=== PATIENT | female | born 1970 | race Caucasian/White ===

== ENCOUNTER 2021-02-20 23:23 | Inpatient (IN) | payer MEDICARE, SELFPAY ==
--- NOTE | ~2021-02-20 | XR_ITS ---
EXAMINATION: XR CHEST CLINICAL INFORMATION: Shortness of breath COMPARISON: 03/06/2018 TECHNIQUE: Frontal view of the chest was obtained. FINDINGS: Lung volumes are symmetric. Minimal streaky left basilar opacity favors atelectasis. No additional consolidation bilaterally. No evidence of pneumothorax, pleural effusion, or pulmonary edema. The cardiomediastinal contour is unremarkable. No acute osseous findings are seen. XR/XR chest 1V IMPRESSION: Linear left basilar atelectasis without additional acute findings.
--- NOTE | ~2021-02-20 | CT_ITS ---
EXAMINATION: CT ANGIOGRAM NECK AND BRAIN CLINICAL INFORMATION: Left-sided weakness COMPARISON: Head CT 02/21/2021 TECHNIQUE: Test bolus sequences followed by intravenous administration 70 mL of Omnipaque 350. Helical imaging was performed in the axial plane from the thoracic inlet to the skull vertex. Delayed postcontrast imaging of the head was also performed. The data was processed at the nuclear medical technologist's workstation for generation of MIP sequences. Angled MIPs and volume rendered reformatted images were also generated at an offline 3D workstation. Stenoses are assessed in accordance with NASCET criteria unless otherwise indicated. DOSE LOWERING TECHNIQUES: This CT examination was performed using dose optimization techniques as appropriate, variously including the following: - Automated exposure control - Adjustment of mA and/or kV according to patient size (this includes techniques or standardized protocols for targeted exams were dose is matched to indication/reason for exam; i.e. extremities or head) - Use of iterative reconstruction technique DLP: 1569 mGy-cm FINDINGS: Neck CTA: Normal appearance of the visualized aortic arch and proximal branches. No evidence of stenosis at the branch origins. The left vertebral artery arises directly off the aortic arch, an anatomic variant. Both vertebral arteries are widely patent throughout their extracranial cervical course. Normal appearance of the common and internal carotid arteries without focal stenosis. Brain CTA: Normal appearance of the intradural vertebral arteries, and left vertebral artery is dominant. The basilar and superior cerebellar arteries are patent. There is origin of the right posterior cerebral artery. Otherwise normal appearance of the bilateral posterior cerebral arteries. Normal appearance of the intradural internal carotid arteries without focal stenosis. Normal appearance of the anterior cerebral and middle cerebral arteries without focal occlusion or stenosis. Normal anterior communicating artery. Normal arborization of the middle cerebral arteries. CT Head: No intracranial mass, hemorrhage, extra-axial collection, or midline shift. The barreto-white matter differentiation is preserved. No pathologic intra-axial enhancement or regional oligemia. No hydrocephalus. The mastoid air cells and paranasal sinuses remain well aerated. CT Neck: The thyroid gland and remaining cervical soft tissues are normal in appearance. Patient is status post C5-C6 ACDF. Mild scattered degenerative changes of the cervical spine. Upper Chest: No abnormalities in the visualized lung apices or upper mediastinum. CT/CT angio head neck IMPRESSION: No hemodynamically significant stenosis in the major arteries of the neck. No large vessel occlusion or significant stenosis in the intracranial circulation.
--- NOTE | ~2021-02-20 | CT_ITS ---
EXAMINATION: CT HEAD WITHOUT CONTRAST (STROKE PROTOCOL) INDICATION INFORMATION: Stroke protocol COMPARISON: None TECHNIQUE: Noncontrast CT of the head was performed. DLP: 787 mGy-cm DOSE LOWERING TECHNIQUES: This CT examination was performed using dose optimization techniques as appropriate, variously including the following: - Automated exposure control - Adjustment of mA and/or kV according to patient size (this includes techniques or standardized protocols for targeted exams were dose is matched to indication/reason for exam; i.e. extremities or head) - Use of iterative reconstruction technique FINDINGS: Partially limited assessment due to motion artifact. There is no evidence of acute intracranial hemorrhage or territorial infarction. No abnormal mass-effect or midline shift is seen. Lanza to white matter differentiation is well preserved. No extra-axial fluid collections are identified. The ventricles are normal in size. There is no abnormal attenuation within the brain parenchyma. The osseous structures and soft tissues are normal. The mastoid air cells and visualized portions of the paranasal sinuses are well-aerated. CT/CT head for stroke IMPRESSION: No acute intracranial findings. This stroke protocol result was discussed with Dr. Kelley on 02/21/2021 12:43 AM, and it was ascertained that the content and urgency of the report was understood at the time of direct communication.
--- NOTE | ~2021-02-20 | CT_ITS ---
EXAMINATION: CT ABDOMEN AND PELVIS WITHOUT CONTRAST CLINICAL INFORMATION: Pain COMPARISON: None TECHNIQUE: Multidetector volumetric imaging was performed from the superior aspect of the liver through the pubic symphysis. Sagittal and coronal reformatted images were obtained on the technologist's workstation. This CT examination was performed using dose optimization techniques as appropriate, variously including the following: *Automated exposure control *Adjustment of mA and/or kV according to patient size (this includes techniques or standardized protocols for targeted exams where dose is matched to indication/reason for exam; i.e. extremities or head) *Use of iterative reconstruction technique DLP: 1127 mGy-cm FINDINGS: LUNG BASES: There is bibasilar scarring or atelectasis or resolving infiltrate. The heart size is normal. LIVER, GALLBLADDER, AND BILIARY TREE: The liver is normal in size, shape, and attenuation. No focal hepatic lesion or biliary ductal dilatation is present. The gallbladder has been removed. PANCREAS: Unremarkable. SPLEEN: Unremarkable. ADRENAL GLANDS: Unremarkable. KIDNEYS AND URETERS: The kidneys are normal in size, shape, and attenuation. No hydronephrosis, hydroureter, or calculi seen. No perinephric stranding. BLADDER: Unremarkable. GASTROINTESTINAL TRACT: There is scattered stool seen throughout the colon without any distention. The small bowel loops are normal caliber. Appendix is not seen with certainty. The IC junction is normal. Stomach is nondistended. No free air or free fluid. ABDOMINAL WALL: No significant hernia is appreciated. LYMPH NODES: Normal. VASCULAR: Unremarkable. PELVIC VISCERA: There is a 2.4 cm cyst right ovary. The uterus is midline and appears unremarkable. There is no free fluid. No abnormal lymph nodes seen. OSSEOUS STRUCTURES: Minimal loss of L4-L5 disc height with ventral spondylosis. No acute fracture or lytic process seen. CT/CT abdomen pelvis wo con IMPRESSION: 1. No acute intra-abdominal process seen. 2. Mild constipation. 3. There is a 2.4 cm right ovarian cyst.
[2021-02-20 23:29] VITALS: BP 106/61; PULSE 93; RESP 18; TEMP 36.8; O2SAT 95; BMI 42.2
[2021-02-21] VITALS (12 sets, daily range): BP systolic 108–133; BP diastolic 61–75; PULSE 84–101; RESP 15–23; TEMP 37.1; O2SAT 93–97
--- NOTE | 2021-02-21 00:17 | ECG_ITS ---
Test Reason : NEURO SYMPTOMS Blood Pressure : / mmHG Vent. Rate : 089 BPM Atrial Rate : 089 BPM P-R Int : 162 ms QRS Dur : 088 ms QT Int : 378 ms P-R-T Axes : 044 -11 008 degrees QTc Int : 459 ms Normal sinus rhythm Minimal voltage criteria for LVH, may be normal variant Borderline ECG When compared with ECG of 10-MAR-2018 15:36, Minimal criteria for Inferior infarct are no longer Present Referred By: Seble Kelley Electronically Signed By:ANITA PRIEST MD
--- NOTE | 2021-02-21 00:19 | ED_ITS ---
HPI - Neuro Symptoms/Deficit General Chief Complaint: Neuro Symptoms/Deficit Stated Complaint: ?Stroke Time Seen by Provider: 02/21/21 00:11 History of Present Illness HPI Narrative: History of migraine headache, depression, anxiety, diabetes. History of fibromyalgia. Patient complaining of few day history of having left- sided weakness both arm and leg. In addition patient claims that her speech is garbled. All these issue has been going on for few days. Patient denies any fever chills. No coughing or congestion or upper respiratory symptoms. No diaphoresis. Also complaining of abdominal pain that is more chronic in nature. There is no change in bowel movements. Patient has been compliant with her medication including Xarelto. Patient denies any travel history. Denies any new leg swelling. Denies any chest pain. No shortness of breath. Related Data Allergies Allergy/AdvReac Type Severity Reaction Status Date / Time amoxicillin [From AUGMENTIN] Allergy Unknown UNKNOWN Unverified 05/28/20 19:31 clavulanic acid Allergy Unknown UNKNOWN Unverified 05/28/20 19:31 [From AUGMENTIN] ketorolac [From TORADOL] Allergy Unknown UNKNOWN Unverified 05/28/20 19:31 lamotrigine [From LAMICTAL] Allergy Unknown UNKNOWN Unverified 05/28/20 19:31 promethazine [From PHENERGAN] Allergy Unknown UNKNOWN Unverified 05/28/20 19:31 tramadol [TRAMADOL] Allergy Unknown UNKNOWN Unverified 05/28/20 19:31 Review of Systems Review of Systems: Constitutional: No Weight loss, No Fever, No Chills, No Night Sweats, No Fatigue, No Malaise ENT/Mouth: No Hearing loss, No Ear Pain, No Nasal Congestion, No Sinus Pain, No Hoarseness, No sore throat, No Rhinorrhea, No Swallowing Difficulty Eyes: No Eye Pain, No Swelling, No Redness, No Foreign Body, No Discharge, No Vision Changes Cardiovascular: No Chest Pain, No SOB, No Dyspnea on Exertion, No Orthopnea, No Edema, No Palpitations Respiratory: No Cough, No Sputum, No Wheezing, No Smoke Exposure, No Dyspnea Gastrointestinal: no Nausea, No Vomiting, No Diarrhea, No Constipation, No abdominal Pain, No Hematochezia, No Melena Genitourinary: no irregular bleeding, No Dysuria, No Urinary Frequency, No Hematuria, No Urinary Incontinence, No Urgency, No Flank Pain, No Urinary Flow Changes, No Hesitancy Musculoskeletal: No joint pain, No Myalgias, No Joint Swelling Skin: No Skin Lesions, No rash Neuro: Positive weakness on the left side, No Numbness, No Paresthesias, No Loss of Consciousness, No Dizziness, No Headache Psych: No Anxiety/Panic, No Depression, No SI/HI/AH/VH, No Social Issues, Heme/Lymph: No Bruising, No Bleeding,No Lymphadenopathy Endocrine: No Polyuria, No Polydipsia, No Temperature Intolerance [facility] Past Medical History Medical History (Updated 02/21/21 @ 02:01 by Seble Kelley MD) Confusion Diabetes Diverticulitis Fibromyalgia muscle pain Lupus Memory loss Neuropathy Social History Social History Advance Directives: No Advance Directives Information Provided: No Patient : No Physical Exam Vital Signs: Vital Signs: Last Vital Signs Temp 98.3 F 02/20/21 23:29 Pulse 87 02/21/21 00:57 Resp 16 02/21/21 00:57 BP 108/61 02/21/21 00:57 Pulse Ox 95 02/21/21 00:57 Body Mass Index 42.2 Appearance: Alert. Oriented X3. No acute distress. Eyes: Pupils equal, round and reactive to light. ENT: Pharynx normal. Neck: Normal inspection. Neck supple. No lymph nodes noted. No crepitus CVS: Normal heart rate and rhythm. Pulses normal. Normal S1 and S2 Respiratory: No respiratory distress. Breath sounds normal. No Wheezing. No rales Abdomen: Soft and nontender. No rigidity. No distention. good BS x4 Skin: Skin warm and dry. Normal skin color. Normal skin turgor. Extremities: No lower extremity edema. Neurovascular intact to all extremities. No Lacerations. No Rash Neuro: Oriented X 3. No motor deficit. No sensory deficit. Moving all extermities. No slurred speech grossly hand breasts is equal on both sides. They are [id number] intact. Rapid alternating movement intact. Able to lift up both lower extremity to the same extent. Sensation in lower extremity intact skin intact. Motor intact. MDM - Neuro Symptoms/Deficit MDM Narrative Medical decision making narrative: Patient had weakness to the left side. Arm and leg. Positive change in speech. However the symptom has been ongoing for days. CT scan of the head was grossly negative for any acute evidence of bleeding. Given symptoms greater than 48 hours. Patient on Xarelto. Patient is not a candidate for tPA. Will admit for further evaluation. Currently in stable condition. Coronavirus test is being sent off. Case will be discussed with the hospitalist team. Medical Records Attestation: I reviewed the patient's medical records. Lab Data Attestation: I reviewed the patient's lab results. Result diagrams: 02/21/21 00:42 02/21/21 00:42 Labs: Lab Results 02/21/21 02/21/21 02/21/21 Range/Units 00:42 00:42 00:52 WBC 7.6 (4.8-10.8) X10*3/uL RBC 4.09 L (4.20-5.50) X10*6/uL Hgb 11.0 L (12.0-16.0) g/dl Hct 35.1 L (37-47) % MCV 85.8 (80-98) fL MCH 26.9 L (27.0-33.0) pg MCHC 31.3 (31.0-35.0) g/dl RDW 16.0 (11.0-16.0) % Plt Count 137 L (160-400) X10*3/uL MPV 9.5 (9.4-12.3) fL Immature Gran % (Auto) 0.4 (0.0-0.4) % Neut % (Auto) 64.0 (45-73) % Lymph % (Auto) 25.0 (20-40) % Wheeler % (Auto) 8.5 (2-11) % Eos % (Auto) 2.0 (0-4) % Baso % (Auto) 0.1 (0-2) % Lymph # (Auto) 1.9 (1.2-4.9) X10*3/uL Wheeler # (Auto) 0.6 (0.1-1.2) X10*3/uL Eos # (Auto) 0.2 (0.0-0.4) X10*3/uL Baso # (Auto) 0.0 (0.0-0.2) X10*3/uL Abs Immat Gran (auto) 0.03 (0.00-0.03) X10*3/uL Absolute Neuts (auto) 4.8 (2.0-8.3) X10*3/uL Absolute Nucleated RBC 0.000 (0.0-0.012) X10*3/uL Nucleated RBC % (auto) 0.0 (0.0-0.2) /100WBC PT (10.8-13.0) SEC INR (0.9-1.1) APTT (24.1-38.0) SEC POC Glucose 111 (60-115) mg/dL Troponin I High Sens < 3.5 (<3.5-17.0) ng/L 02/21/21 Range/Units 01:29 WBC (4.8-10.8) X10*3/uL RBC (4.20-5.50) X10*6/uL Hgb (12.0-16.0) g/dl Hct (37-47) % MCV (80-98) fL MCH (27.0-33.0) pg MCHC (31.0-35.0) g/dl RDW (11.0-16.0) % Plt Count (160-400) X10*3/uL MPV (9.4-12.3) fL Immature Gran % (Auto) (0.0-0.4) % Neut % (Auto) (45-73) % Lymph % (Auto) (20-40) % Wheeler % (Auto) (2-11) % Eos % (Auto) (0-4) % Baso % (Auto) (0-2) % Lymph # (Auto) (1.2-4.9) X10*3/uL Wheeler # (Auto) (0.1-1.2) X10*3/uL Eos # (Auto) (0.0-0.4) X10*3/uL Baso # (Auto) (0.0-0.2) X10*3/uL Abs Immat Gran (auto) (0.00-0.03) X10*3/uL Absolute Neuts (auto) (2.0-8.3) X10*3/uL Absolute Nucleated RBC (0.0-0.012) X10*3/uL Nucleated RBC % (auto) (0.0-0.2) /100WBC PT 17.0 H (10.8-13.0) SEC INR 1.4 H (0.9-1.1) APTT 37.8 (24.1-38.0) SEC POC Glucose (60-115) mg/dL Troponin I High Sens (<3.5-17.0) ng/L NIH Stroke Scale Internal: Initial- Upon Arrival Level of Consciousness: Alert Level of Consciousness Questions: Answers both questions correctly Level of Consciousness Commands: Performs both tasks correctly Best Gaze: Normal Visual: No visual loss Facial Palsy: Normal Motor Arm (Right): No drift Motor Arm (Left): No drift Motor Leg (Right): No drift Motor Leg (Left): No drift Limb Ataxia: Absent Sensory: Normal Discharge Plan Discharge Clinical Impression: Acute CVA (cerebrovascular accident) Patient Disposition: Admitted As Inpatient
[2021-02-21 00:47] LABS: Basophils Percent Auto 0.1 % (0-2); Eosinophils Absolute Auto 0.2 X10*3/uL (0.0-0.4); Hematocrit 35.1 % (37-47); Imm Gran Abs Auto 0.03 X10*3/uL (0.00-0.03); Imm Gran Pct Auto 0.4 % (0.0-0.4); Lymphocytes Absolute Auto 1.9 X10*3/uL (1.2-4.9); MANUAL DIFF FLAG NO; Mean Corpuscular HGB Conc 31.3 g/dl (31.0-35.0); Mean Corpuscular Hemoglobin 26.9 pg (27.0-33.0); Mean Corpuscular Volume 85.8 fL (80-98); Mean Platelet Volume 9.5 fL (9.4-12.3); Monocytes Absolute Auto 0.6 X10*3/uL (0.1-1.2); Monocytes Percent Auto 8.5 % (2-11); Neutrophils Absolute Auto 4.8 X10*3/uL (2.0-8.3); Platelet Count 137 X10*3/uL (160-400); Red Blood Count 4.09 X10*6/uL (4.20-5.50); White Blood Count 7.6 X10*3/uL (4.8-10.8)
[2021-02-21 00:56] LABS: Glucose, Whole Blood 111 mg/dL (60-115)
[2021-02-21 01:14] LABS: Troponin-I High Sensitivity < 3.5 ng/L (<3.5-17.0)
[2021-02-21 01:41] LABS: INTERNATIONAL NORM RATIO 1.4 (0.9-1.1)
[2021-02-21 01:44] LABS: Partial Thromboplastin Time 37.8 SEC (24.1-38.0)
[2021-02-21 02:08] LABS: Ethanol < 10 mg/dL
[2021-02-21 02:11] LABS: Alanine Aminotransferase 28 U/L (0-31); Albumin Level 3.9 g/dL (3.5-5.0); Alkaline Phosphatase 130 U/L (39-117); Anion Gap 13 (12-20); Aspartate Amino Transferase 35 U/L (5-31); Bilirubin Direct 0.2 mg/dL (0.0-0.5); Bilirubin Total 0.4 mg/dL (0.0-1.0); Blood Urea Nitrogen 11 mg/dL (9-16); Calcium 9.3 mg/dL (8.4-10.2); Carbon Dioxide 28 mmol/L (22-29); Chloride 104 mmol/L (96-108); Creatinine Clr Calc Pharmacy 113.9; Estimated Glomerular Filt Rate > 60; Glucose Random 91 mg/dL (60-115); Phosphorus 3.9 mg/dL (2.7-4.5); Sodium 141 mmol/L (135-145); Total Protein 7.6 g/dL (6.5-8.0)
--- NOTE | 2021-02-21 02:53 | PM.IMHP ---
History of Present Illness Date of Service: 02/21/21 Chief Complaint: left sided weakness 51-year-old female With a past medical history of diabetes, fibromyalgia, lupus, neuropathy, anxiety, depression, migraine headaches presented to the hospital with a chief complaint of left-sided weakness and left facial numbness along with some speech difficulty for the past couple days. Patient denies any chest pain lightheadedness dizziness. Denies any numbness tingling. Denies any falls. Denies any recent travel or sick contacts. Review of all other systems is negative except mentioned above ER course: Per ER team patient exam seems to be fairly nonfocal; CT head showed no acute findings; EKG nonischemic. Admitted for further management. [facility] Medical History (Updated 02/21/21 @ 09:17 by Jamar Sidhu MD) Chronic respiratory failure with hypoxia, on home O2 therapy Diabetes Diverticulitis Fibromyalgia muscle pain History of pulmonary embolism Hyperlipemia Lupus Lupus anticoagulant disorder NAFLD (nonalcoholic fatty liver disease) Social History Alcohol intake: never Smoked in Last 30 Days: No Use of substances other than those prescribed or required for medical reasons: No Advance Directives: No Advance Directives Information Provided: No Patient : No service: No Current occupational status: unemployed Meds Allergies Allergy/AdvReac Type Severity Reaction Status Date / Time amoxicillin [From AUGMENTIN] Allergy Unknown UNKNOWN Unverified 05/28/20 19:31 clavulanic acid Allergy Unknown UNKNOWN Unverified 05/28/20 19:31 [From AUGMENTIN] ketorolac [From TORADOL] Allergy Unknown UNKNOWN Unverified 05/28/20 19:31 lamotrigine [From LAMICTAL] Allergy Unknown UNKNOWN Unverified 05/28/20 19:31 promethazine [From PHENERGAN] Allergy Unknown UNKNOWN Unverified 05/28/20 19:31 tramadol [TRAMADOL] Allergy Unknown UNKNOWN Unverified 05/28/20 19:31 Active Medications: Current Medications Generic Name Dose Route Start Last Admin Trade Name Freq PRN Reason Stop Dose Admin Acetaminophen 650 mg 02/21/21 02:44 Acetaminophen 325 Mg Tablet PO Q6H PRN Pain, Mild (Pain Scale 1-3) Insulin Human Lispro 0 unit 02/21/21 07:30 Insulin Lispro 100 Unit/Ml 3 Ml Vial [facility] Protocol Magnesium Hydroxide 30 ml 02/21/21 02:44 Milk Of Magnesia 30 Ml Oral.Susp PO DAILY PRN Constipation Senna 17.2 mg 02/21/21 02:44 Sennosides 8.6 Mg Tablet PO BEDTIME PRN Constipation Sodium Chloride 3 ml 02/21/21 08:00 0.9 % Sodium Chloride Flush 3 Ml [facility] Medications Medication Instructions Recorded Confirmed Last Taken Type acetaminophen 2 tab PO BID PRN 02/21/21 02/21/21 Unknown History albuterol sulfate See Rx Instructions .ROUTE .COMPLEX 02/21/21 02/21/21 Unknown History atorvastatin 1 tab PO BEDTIME 02/21/21 02/21/21 Unknown History clonazepam 1 tab PO BID PRN 02/21/21 02/21/21 Unknown History clonidine HCl 1 tab PO BID 02/21/21 02/21/21 Unknown History famotidine 1 tab PO DAILY 02/21/21 02/21/21 Unknown History gabapentin 600 mg PO TID 02/21/21 02/21/21 Unknown History propranolol 1 tab PO BID 02/21/21 02/21/21 Unknown History rivaroxaban [Xarelto] 1 tab PO BEDTIME 02/21/21 02/21/21 Unknown History vitamin B complex [Vitamins B 1 cap PO DAILY 02/21/21 02/21/21 Unknown History Complex] Physical Exam Vital Signs and Narrative: Vital Signs: Last Vital Signs Temp 98.3 F 02/20/21 23:29 Pulse 88 02/21/21 02:37 Resp 16 02/21/21 02:37 BP 132/72 02/21/21 02:37 Pulse Ox 96 02/21/21 02:37 Body Mass Index 42.2 Gen: Appears be in no acute distress HEENT: NCAT, Moist mucosa. Pulmonary: Vesicular breath sounds, fair air entry CVS: Normal S1-S2 Abdomen: BS+, Soft, mildly tender diffusely; Extremities: Warm well perfused Neuro: Alert and awake. Sensations intact and equal bilaterally; strength 5/5 throughout; no gross abnormality. Results Labs CBC and Chem 7: 02/21/21 04:46 02/21/21 04:46 Labs: Laboratory Results - last 24 hr 02/21/21 02/21/21 02/21/21 00:42 00:42 00:52 MCV 85.8 MCH 26.9 L MCHC 31.3 RDW 16.0 Plt Count 137 L MPV 9.5 Immature Gran % (Auto) 0.4 Neut % (Auto) 64.0 Lymph % (Auto) 25.0 [place] % (Auto) 8.5 Eos % (Auto) 2.0 Baso % (Auto) 0.1 Lymph # (Auto) 1.9 [place] # (Auto) 0.6 Eos # (Auto) 0.2 Baso # (Auto) 0.0 Abs Immat Gran (auto) 0.03 Absolute Neuts (auto) 4.8 Absolute Nucleated RBC 0.000 Nucleated RBC % (auto) 0.0 PT INR APTT Anion Gap Estim Creat Clear Calc Estimated GFR POC Glucose 111 Random Glucose Calcium Phosphorus Magnesium Total Bilirubin Direct Bilirubin AST ALT Alkaline Phosphatase Total Creatine Kinase Troponin I High Sens < 3.5 Total Protein Albumin Ethyl Alcohol 02/21/21 02/21/21 02/21/21 01:29 01:29 01:29 MCV MCH MCHC RDW Plt Count MPV Immature Gran % (Auto) Neut % (Auto) Lymph % (Auto) [place] % (Auto) Eos % (Auto) Baso % (Auto) Lymph # (Auto) [place] # (Auto) Eos # (Auto) Baso # (Auto) Abs Immat Gran (auto) Absolute Neuts (auto) Absolute Nucleated RBC Nucleated RBC % (auto) PT 17.0 H INR 1.4 H APTT 37.8 Anion Gap 13 Estim Creat Clear Calc 113.9 Estimated GFR > 60 POC Glucose Random Glucose 91 Calcium 9.3 Phosphorus 3.9 Magnesium 2.0 Total Bilirubin 0.4 Direct Bilirubin 0.2 AST 35 H ALT 28 Alkaline Phosphatase 130 H Total Creatine Kinase 85 Troponin I High Sens Total Protein 7.6 Albumin 3.9 Ethyl Alcohol < 10 Imaging Radiologist's Impressions: Impressions Chest X-Ray 02/21/21 00:17 IMPRESSION: Linear left basilar atelectasis without additional acute findings. Head CT 02/21/21 00:17 IMPRESSION: No acute intracranial findings. This stroke protocol result was discussed with Dr. Kelley on 02/21/2021 12:43 AM, and it was ascertained that the content and urgency of the report was understood at the time of direct communication. Assessment and Plan (1) Left-sided weakness: Status: Acute 51-year-old female with a past medical history of diabetes, neuropathy, fibromyalgia, obesity, lupus, migraine headaches presented to the hospital with a chief complaint of left facial numbness and left-sided numbness and weakness; Left-sided weakness: Patient subjectively reports that she still feels weaek. Exam is nonfocal. CT head showed no acute findings. Telemetry Cycle enzymes Echocardiogram Neurology consult for further recommendations Will obtain CT angio head and neck Nausea/abdominal discomfort: Patient reports he has been having nausea/abdominal discomfort chronically. Asking for Zofran and morphine. Patient noted to have mild diffuse tenderness. Supportive care Diabetes: Insulin sliding scale For all other chronic conditions, home medications will be continued DVT prophylaxis: SCD boots Code status: Full code
[2021-02-21] MEDS: iohexoL 350 MG/ML 100 ML INFUS..BTL 70 ML IV (03:32)
[2021-02-21] MEDS: ondansetron HCL 4 MG/2 ML VIAL IVPUSH ×2 (04:11→12:52)
[2021-02-21] MEDS: HYDROmorphone HCl 0.5 MG/0.5 ML SYRINGE IVPUSH (04:11)
[2021-02-21 04:13] LABS: Glucose Urine UA NEG (NEG); Leukocyte Esterase Urine NEG (NEG); Nitrite Urine NEG (NEG); Specific Gravity - Urine <= 1.005 (1.005-1.025); Urine Blood NEG (NEG); Urine Ketones NEG (NEG); Urine Protein NEG (NEG-TRACE)
[2021-02-21 04:16] LABS: Appearance Urine CLEAR; Color Urine YELLOW
[2021-02-21 04:25] LABS: Glucose, Whole Blood 105 mg/dL (60-115)
[2021-02-21 04:26] LABS: COVID-19 Test Negative (Negative); IDNOW Serial# 9DD0AD1C
[2021-02-21 04:51] LABS: Basophils Percent Auto 0.3 % (0-2); Eosinophils Absolute Auto 0.2 X10*3/uL (0.0-0.4); Eosinophils Percent Auto 2.4 % (0-4); Hematocrit 33.9 % (37-47); Hemoglobin 10.6 g/dl (12.0-16.0); Imm Gran Abs Auto 0.03 X10*3/uL (0.00-0.03); Imm Gran Pct Auto 0.4 % (0.0-0.4); Lymphocytes Percent Auto 25.9 % (20-40); MANUAL DIFF FLAG NO; Mean Corpuscular HGB Conc 31.3 g/dl (31.0-35.0); Mean Corpuscular Hemoglobin 26.7 pg (27.0-33.0); Mean Corpuscular Volume 85.4 fL (80-98); Mean Platelet Volume 8.8 fL (9.4-12.3); Monocytes Absolute Auto 0.6 X10*3/uL (0.1-1.2); Monocytes Percent Auto 8.2 % (2-11); Neutrophils Absolute Auto 4.8 X10*3/uL (2.0-8.3); Neutrophils Percent Auto 62.8 % (45-73); Platelet Count 127 X10*3/uL (160-400); Red Blood Count 3.97 X10*6/uL (4.20-5.50); White Blood Count 7.6 X10*3/uL (4.8-10.8)
[2021-02-21 05:23] LABS: Troponin-I High Sensitivity < 3.5 ng/L (<3.5-17.0)
[2021-02-21 05:28] LABS: Anion Gap 14 (12-20); Blood Urea Nitrogen 10 mg/dL (9-16); Carbon Dioxide 26 mmol/L (22-29); Chloride 104 mmol/L (96-108); Creatinine Clr Calc Pharmacy 112.4; Estimated Glomerular Filt Rate > 60; Glucose Random 112 mg/dL (60-115); Sodium 140 mmol/L (135-145)
--- NOTE | 2021-02-21 07:25 | PC.NURSE ---
change of shift report given to forrest barrow. pt has general body pain and abd pain. pt speach remains the same some words are slightly garbbled with her mask on. pt repositions self no distress.
[2021-02-21 07:37] LABS: Glucose, Whole Blood 189 mg/dL (60-115)
[2021-02-21] MEDS: Gabapentin 600 MG TABLET PO ×3 (09:19→22:22)
[2021-02-21] MEDS: cloNIDine HCL 0.1 MG TABLET PO ×2 (09:19→22:22)
[2021-02-21] MEDS: Propranolol HCL 20 MG TABLET PO ×2 (09:19→22:21)
[2021-02-21] MEDS: clonazePAM 1 MG TABLET PO (11:19)
[2021-02-21] MEDS: Albuterol Sulfate 90 MCG 8 GM INHALER 2 PUFF INHALE (12:52)
[2021-02-21] MEDS: Acetaminophen 325 MG TABLET 650 MG PO ×2 (12:52→22:21)
[2021-02-21 13:06] LABS: Glucose, Whole Blood 231 mg/dL (60-115)
[2021-02-21] MEDS: Insulin Lispro 100 UNIT/ML 3 ML VIAL SUBCUT ×3 (13:13→22:22)
[2021-02-21 15:22] LABS: Glucose, Whole Blood 298 mg/dL (60-115)
--- NOTE | 2021-02-21 15:31 | MHC.CM.PN ---
CM MET WITH PT WHO REPORTS SHE LIVES AT HOME WITH HER SON WHO IS ALSO ONE OF HER PCS'S. PT REPORTS SHE ALSO HAS A WOMAN INFORMATICS NURSE TO ASSIST WITH SHOWERS AND SHOPPING. PT REPORTS SHE HAS INFORMATICS NURSE HELP IN THE HOME DAILY. 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 PT REPORTS SHE HAS A HCP COMPLETED ALREADY, COPY REQUESTED. SHE ALSO REPORTS HER PCP IS ADONAY BENTLEY. IMM DELIVERED CURRENTLY PTS DC PLAN IS TBD, HOME WITH RESUMPTION OF SERVICES VS STR. PT WILL REQUIRE CHAIR VAN VS BLS TRANSPORT
[2021-02-21] MEDS: 0.9 % Sodium Chloride Flush 3 ML SYRINGE IVFLUSH (16:42)
[2021-02-21] MEDS: Famotidine/PF 20 MG/2 ML VIAL IVPUSH (18:03)
[2021-02-21 19:00] LABS: Glucose, Whole Blood 307 mg/dL (60-115)
--- NOTE | 2021-02-21 19:54 | PC.NURSE ---
This RN rec'd report from Kvng GALLARDO. Pt aaox4, resting on stretcher in NAD, breathing with ease on baseline 3L NC. Pt c/o generalized abd pain, endorses nausea, denies vomiting, denies diarrhea, denies urinary sx. Pt reports frustration with no information on plan of care. This RN updates pt that plan is for MRI. Pt expresses understanding of plan and appreciation of update. Pt stretcher in low locked position, rails raisd, call coppola within reach.h
[2021-02-21 21:42] LABS: Glucose, Whole Blood 275 mg/dL (60-115)
[2021-02-21] MEDS: Rivaroxaban 20 MG TABLET PO (22:21)
[2021-02-21] MEDS: Atorvastatin Calcium 40 MG TABLET PO (22:21)
--- NOTE | 2021-02-21 22:55 | PC.NURSE ---
PATIENT ASKING TO TAKE TO THE MD WANTING MORPHINE FOR HER ABD GENERALIZED PAIN, STATING SHE ASKED THE PREVIOUS PROVIDER AND GIVEN PRN TYLENOL, PATIENT MEDICATED WITH PRN TYLENOL AT THIS TIME. PATIENT HAS NO FACIAL GRIMACE OR GUARDING AT THIS TIME.
[2021-02-22 07:16] VITALS: BP 141/90; PULSE 89; RESP 18; TEMP 37; O2SAT 93
[2021-02-22 07:21] VITALS: BP 140/56; PULSE 63; RESP 18; TEMP 36.6; O2SAT 99
--- NOTE | 2021-02-22 07:30 | CA_ITS ---
Transthoracic Echocardiogram Patient (Last, First, Middle): Meredith Beltran, Gender: Female Date of : 1970 Age: 51 Procedure Date: 02/22/2021 Procedure Type: Transthoracic Echocardiogram Location: [facility] Height: 165.1 cm Weight: 114.76 kg BSA: 2.19 m2 Heart Rate: bpm BP: 124 / 71 mmHg Inspector Purchased Parts: Referring MD: Juan F Llanos MD Symptoms: Left-sided weakness Study Quality: Fair ECG Rhythm: Sinus Conclusions: - The left ventricular systolic function is normal. The visually estimated ejection fraction is between 55-60%. - No obvious valvular pathology seen on this study. - Interatrial shunt cannot be excluded. If clinically indicated, consider bubble study. Findings Left Ventricle Normal left ventricular cavity size. There is mildly increased left ventricular wall thickness. The left ventricular systolic function is normal. The visually estimated ejection fraction is between 55-60%. There is no evidence of regional wall motion abnormalities. Diastolic function is normal for age. Right Ventricle Mildly increased right ventricular cavity size. There is normal right ventricular systolic function. Atria The left atrium is normal in size. Interatrial shunt cannot be excluded. The right atrium is normal in size. Aortic Valve There is a normal trileaflet aortic valve. There is no aortic valve stenosis. There is no aortic valve regurgitation. Mitral Valve The mitral valve appears normal. There is no mitral valve regurgitation. There is no mitral valve stenosis. Pulmonic Valve The pulmonic valve was not well visualized. Tricuspid Valve Normal tricuspid valve structure. There is trace tricuspid valve regurgitation. The pulmonary artery systolic pressure is normal. Great Vessels The aortic annulus, sinuses of valsalva, and asc aorta are normal in size. Venous The inferior vena cava is normal in size and collapses greater than 50% with inspiration. Pericardium/Pleural There is no evidence of pericardial effusion. Prior Study Comparison No prior study available for comparison. Recommendations, Care & Conclusions No obvious valvular pathology seen on this study. Measurements 2D Linear Measurements IVSd: 1.13 0.6-0.9/0.6-1.0 cm LVIDd: 4.99 3.9-5.3/4.2-5.9 cm LVIDd Index: 2.28 2.4-3.2/2.2-3.1 cm/m2 LVIDs: 2.72 2.0-3.6 cm LVPWd: 1.13 0.7-1.1 cm Ao Root: 3.20 2.1-3.5 cm LA Diam: 4.00 2.7-3.8/3.0-4.0 cm LAIDs Index: 1.83 1.5-2.3 cm/m2 LV Mass: 267.10 67-162/88-224 g LV Mass Index: 121.96 43-95/49-115 g/m2 LVOT Diam: 2.00 3.0+(-)1.3 cm Mitral Valve MV Pk E: 1.03 MV PK A: 0.87 MV Decel Time: 152.00 E/A: 1.20 E'Lateral: 11.40 E'Medial: 6.31 E/E' Med: 16.30 E/E' Lat: 9.00 PHT: 44.00 MVA PHT: 5.00 Decel [place]: 6.77 Aortic Valve AoV Pk Miguel: 1.68 AoV Mn Miguel: 1.02 AoV VTI: 0.34 AoV Pk Grad: 11.00 Aov Mn Grad: 5.00 ANTHONY Cont.VTI: 2.07 LVOT LVOT Pk Miguel: 0.92 LVOT Mn Miguel: 0.63 LVOT VTI: 0.22 LVOT Pk Grad: 3.00 LVOT Mn Grad: 2.00 LVOT Diam: 2.00 LVOT Area: 3.14 Diastolic Function MV Pk E: 1.03 MV Pk A: 0.87 E/A: 1.20 E'Medial: 6.31 E/E' Med: 16.30 E' Laterial: 11.40 E/E' Lat: 9.00 Tricuspid Valve TR Pk Miguel: 2.71 TR Pk Grad: 29.00 RA Press: 3.00 RVSP: 32.00 Great Vessels Aorta Ao Root-2D: 3.20 2.0-3.7 cm Ao Asc: 3.00 2.1-3.4 cm Pulmonary Valve PV Pk Miguel: 1.41 Peak PV Grad: 8.00 Updated in Other Vendor System with Status of Final Murali Vázquez MD electronically signed on 02/22/2021 4:36:08 PM with status of Final
[2021-02-22 07:55] LABS: Glucose, Whole Blood 225 mg/dL (60-115)
[2021-02-22 08:00] VITALS: BP 123/62; PULSE 91; RESP 18; TEMP 37.2; O2SAT 90
[2021-02-22 08:04] VITALS: BP 140/56; PULSE 63
[2021-02-22] MEDS: Insulin Lispro 100 UNIT/ML 3 ML VIAL SUBCUT ×2 (08:04→11:48)
[2021-02-22] MEDS: cloNIDine HCL 0.1 MG TABLET PO (08:04)
[2021-02-22] MEDS: 0.9 % Sodium Chloride Flush 3 ML SYRINGE IVFLUSH (08:11)
[2021-02-22] MEDS: ondansetron HCL 4 MG/2 ML VIAL IVPUSH (09:37)
[2021-02-22] MEDS: Propranolol HCL 20 MG TABLET PO (09:38)
[2021-02-22] MEDS: clonazePAM 1 MG TABLET PO (09:38)
[2021-02-22] MEDS: Acetaminophen 325 MG TABLET 650 MG PO ×2 (09:38→16:27)
[2021-02-22 09:47] LABS: Cholesterol 115 mg/dL; HDL Cholesterol 25 mg/dL; LDL Cholesterol Calculated 49 mg/dl; Triglycerides 209 mg/dL
--- NOTE | 2021-02-22 10:29 | P.CNNE_ITS ---
History of Present Illness Data of Consult Service Date: 02/22/21 Primary Care Provider: 51 years old woman with underlying history of obesity and diagnosis of diabetes fibromyalgia and lupus who came to hospital with left- sided numbness. Numbness was noted for few months and was continuous. Infrequently she also had headaches. He was able to walk. There was no significant neck pain or change in bowel bladder control. Review of Systems Review of Systems: No recent cold or flu-like illness or trauma. [facility] Past Medical History Medical History Chronic respiratory failure with hypoxia, on home O2 therapy Diabetes Diverticulitis Fibromyalgia muscle pain History of pulmonary embolism Hyperlipemia Lupus Lupus anticoagulant disorder NAFLD (nonalcoholic fatty liver disease) Social History Social History Household Members: Family Housing: Apartment Do you presently have visiting nurse or other home services: No Alcohol intake: never Patient Tobacco Use Status: Never used Tobacco Smoked in Last 30 Days: No Use of substances other than those prescribed or required for medical reasons: No Have you been hit, kicked, punched, or otherwise hurt by someone within the past year? If so, by whom?: No Do you feel safe in your current relationship?: No Current Relationship Is there a partner from a previous relationship who is making you feel unsafe now?: No Are you made to feel afraid or neglected: No Advance Directives: No Advance Directives Information Provided: No Do you have thoughts of harming others: None Do you have a plan to hurt others: No Plan Recently lost weight without trying: No Nutrition Risks: No Nutritional Risk Patient : No : No Poor oral hygiene: No service: No Current occupational status: unemployed Meds Allergies Allergy/AdvReac Type Severity Reaction Status Date / Time amoxicillin [From AUGMENTIN] Allergy Unknown UNKNOWN Verified 02/21/21 19:56 clavulanic acid Allergy Unknown UNKNOWN Verified 02/21/21 19:56 [From AUGMENTIN] ketorolac [From TORADOL] Allergy Unknown UNKNOWN Verified 02/21/21 19:56 lamotrigine [From LAMICTAL] Allergy Unknown UNKNOWN Verified 02/21/21 19:56 promethazine [From PHENERGAN] Allergy Unknown UNKNOWN Verified 02/21/21 19:56 tramadol [TRAMADOL] Allergy Unknown UNKNOWN Verified 02/21/21 19:56 clindamycin Allergy Unknown Verified 02/21/21 19:57 Active Medications: Current Medications Generic Name Dose Route Start Last Admin Trade Name Freq PRN Reason Stop Dose Admin Acetaminophen 650 mg 02/21/21 02:44 02/22/21 09:38 Acetaminophen 325 Mg Tablet PO 650 mg Q6H PRN Administration Pain, Mild (Pain Scale 1-3) Albuterol Sulfate 2 puff 02/21/21 08:30 02/21/21 12:52 Albuterol Sulfate 90 Mcg 8 Gm Inhaler INHALE 2 puff Q4H PRN Administration Shortness of Breath/Wheezing Atorvastatin Calcium 40 mg 02/21/21 21:00 02/21/21 22:21 Atorvastatin Calcium 40 Mg Tablet PO 40 mg BEDTIME JOANA Administration Clonazepam 1 mg 02/21/21 08:23 02/22/21 09:38 Clonazepam 1 Mg Tablet PO 1 mg BID PRN Administration Anxiety Clonidine HCl 0.1 mg 02/21/21 09:00 02/22/21 08:04 Clonidine Hcl 0.1 Mg Tablet PO 0.1 mg BID [facility] Administration Protocol Gabapentin 600 mg 02/21/21 09:00 02/22/21 09:41 Gabapentin 600 Mg Tablet PO Not Given TID [facility] Insulin Human Lispro 0 unit 02/21/21 07:30 02/22/21 08:04 Insulin Lispro 100 Unit/Ml 3 Ml Vial SUBCUT 4 unit QIDACHS [facility] Administration Protocol Magnesium Hydroxide 30 ml 02/21/21 02:44 Milk Of Magnesia 30 Ml Oral.Susp PO DAILY PRN Constipation Multivitamins 1 tab 02/21/21 09:00 02/22/21 08:04 B-Complex With Vitamin C Tablet PO 1 tab DAILY [facility] Administration Ondansetron HCl 4 mg 02/21/21 03:33 02/22/21 09:37 Ondansetron Hcl 4 Mg/2 Ml Vial IVPUSH 4 mg Q8H PRN Administration Nausea and Vomiting Propranolol HCl 20 mg 02/21/21 09:00 02/22/21 09:38 Propranolol Hcl 20 Mg Tablet PO 20 mg BID [facility] Administration Protocol Rivaroxaban 20 mg 02/21/21 21:00 02/21/21 22:21 Rivaroxaban 20 Mg Tablet PO 20 mg BEDTIME JOANA Administration Senna 17.2 mg 02/21/21 02:44 Sennosides 8.6 Mg Tablet PO BEDTIME PRN Constipation Sodium Chloride 3 ml 02/21/21 08:00 02/22/21 08:11 0.9 % Sodium Chloride Flush 3 Ml Syringe IVFLUSH [address] [facility] Administration Home Medications Medication Instructions Recorded Confirmed Last Taken Type acetaminophen 2 tab PO BID PRN 02/21/21 02/21/21 Unknown History albuterol sulfate See Rx Instructions .ROUTE .COMPLEX 02/21/21 02/21/21 Unknown History atorvastatin 1 tab PO BEDTIME 02/21/21 02/21/21 Unknown History clonazepam 1 tab PO BID PRN 02/21/21 02/21/21 Unknown History clonidine HCl 1 tab PO BID 02/21/21 02/21/21 Unknown History famotidine 1 tab PO DAILY 02/21/21 02/21/21 Unknown History gabapentin 600 mg PO TID 02/21/21 02/21/21 Unknown History propranolol 1 tab PO BID 02/21/21 02/21/21 Unknown History rivaroxaban [Xarelto] 1 tab PO BEDTIME 02/21/21 02/21/21 Unknown History vitamin B complex [Vitamins B 1 cap PO DAILY 02/21/21 02/21/21 Unknown History Complex] Physical Exam Vital Signs: Vital Signs: Last Vital Signs Temp 98.9 F 02/22/21 08:00 Pulse 63 02/22/21 08:04 Resp 18 02/22/21 08:00 BP 140/56 H 02/22/21 08:04 Pulse Ox 90 L 02/22/21 08:00 Body Mass Index 42.2 Obese woman in no acute distress. Affect was flat. Spontaneity and fluency of speech were normal. Face was symmetrical. Extraocular muscles were intact. Visual nunez were full. There was no pronator drift. [id number] testing was normal. Deep tendon reflexes were absent with flexor plantars. Results Labs CBC & Chem 7: 02/21/21 04:46 02/21/21 04:46 Labs: Noncontrast head CT and CTA of brain and neck did not reveal any s ignificant abnormality. Assessment and Plan (1) Left-sided weakness: Status: Acute 51 years old woman with underlying diagnosis of obesity diabetes fibromyalgia and lupus came to hospital with few months of left-sided numbness. Examination was nonfocal. CT scan was normal. CTA was also normal. Differential diagnosis would include microvascular disease, demyelinating disease, or psychosomatic illness. An MRI of brain can help to differentiate. If MRI was not available, it could be arranged as an outpatient. Procedures Date of Service Date of Service: 02/22/21
[2021-02-22 11:05] VITALS: BP 120/68; PULSE 80; RESP 20; TEMP 37.1; O2SAT 95
[2021-02-22 11:18] LABS: Glucose, Whole Blood 235 mg/dL (60-115)
--- NOTE | 2021-02-22 12:56 | P.DS_ITS ---
DS: Providers Provider Date of Service: 02/22/21 Date of admission: 02/21/21 02:45 Primary care physician: Unknown Physician Consults: 02/21/21 02:46 Consult to Neurology Routine Consulting Provider: Mohan Quick Reason for consultation: Left-sided weakness 02/22/21 09:52 Consult Respiratory Therapy Routine Reason for consultation: o2 2l DS: Diagnosis Discharge Diagnosis (1) Left-sided weakness: Status: Acute (2) Acute CVA (cerebrovascular accident): Status: Acute (3) Lupus anticoagulant disorder: Status: Acute (4) Chronic respiratory failure with hypoxia, on home O2 therapy: Status: Acute Problem details: self reported, unclear underlying cause (5) Diabetes: Status: Acute DS: Medications Discharge Medications Home Medications: Home Medications Medication Instructions Recorded Confirmed Xarelto 1 tab PO BEDTIME 02/21/21 02/21/21 acetaminophen 2 tab PO BID PRN 02/21/21 02/21/21 albuterol sulfate See Rx Instructions .ROUTE .COMPLEX 02/21/21 02/21/21 atorvastatin 1 tab PO BEDTIME 02/21/21 02/21/21 clonazepam 1 tab PO BID PRN 02/21/21 02/21/21 clonidine HCl 1 tab PO BID 02/21/21 02/21/21 famotidine 1 tab PO DAILY 02/21/21 02/21/21 gabapentin 600 mg PO TID 02/21/21 02/21/21 propranolol 1 tab PO BID 02/21/21 02/21/21 vitamin B complex [Vitamins B 1 cap PO DAILY 02/21/21 02/21/21 Complex] DS: Summary Hospital Course Hospital Course: patient was admitted for left sided weakness, clinically appeared to be CVA/TIA. symptoms did end up resolving. she was seen by neuro who recommended MRI, which unfortunately was not operational at this time, it was felt that close follow up with outpatient mri would be reasonable. patient is already on xarelto for lupus anticoagulant and statin, she will continue with that therapy. Time Spent with Patient Time attestation: Total time spent providing and/or coordinating discharge services: Discharge coordination time: Greater than 30 minutes Quality: Stroke Does the patient have a stroke diagnosis?: Yes Reason for No Anti-thrombotic at DC: Contraindicated Reason for No Anticoagulant at DC: N/A - Med Ordered Reason Not Initiating IV-Tpa: Contraindicated Reason for No Anti-thrombotic by Day Two: Contraindicated Reason for No Statin at DC: N/A - Med Ordered Physical Exam Vital Signs: Vital Signs: Last Vital Signs Temp 98.8 F 02/22/21 11:05 Pulse 80 02/22/21 11:05 Resp 20 02/22/21 11:05 BP 120/68 02/22/21 11:05 Pulse Ox 95 02/22/21 11:05 Body Mass Index 42.2 General: AO X 3, no acute distress Resp: CTA bilateral CVS: S1,S2,RRR GI: soft, non tender, non distended Neuro: motor grossly intact Psych: appropriate affect DS: Data Data Completed and Pending Labs on day of discharge: Laboratory Results - last 24 hr 02/21/21 02/21/21 02/21/21 13:02 15:18 18:55 POC Glucose 231 H 298 H 307 H Triglycerides Cholesterol LDL Cholesterol, Calc HDL Cholesterol 02/21/21 02/22/21 02/22/21 21:38 07:51 08:41 POC Glucose 275 H 225 H Triglycerides 209 Cholesterol 115 LDL Cholesterol, Calc 49 HDL Cholesterol 25 02/22/21 11:02 POC Glucose 235 H Triglycerides Cholesterol LDL Cholesterol, Calc HDL Cholesterol Discharge Plan Discharge Patient Disposition: Home, Self-Care Discharge Diagnosis: cva/tia Referrals: Mohan Quick MD [Physician] - 1 Week Physician,Unknown [Primary Care Provider] - 1 Week Discharge Medications: Continued atorvastatin 40 mg tablet 1 tab PO BEDTIME RF: 0 clonidine HCl 0.1 mg tablet 1 tab PO BID RF: 0 gabapentin 600 mg tablet 600 mg PO TID RF: 0 famotidine 40 mg tablet 1 tab PO DAILY RF: 0 clonazepam 1 mg tablet 1 tab PO BID PRN (Reason: Cough) RF: 0 acetaminophen 500 mg tablet 2 tab PO BID PRN (Reason: pain) RF: 0 albuterol sulfate 90 mcg/actuation HFA aerosol inhaler See Rx Instructions .ROUTE .COMPLEX RF: 0 propranolol 20 mg tablet 1 tab PO BID RF: 0 vitamin B complex [Vitamins B Complex] Capsule 1 cap PO DAILY RF: 0 Xarelto 20 mg tablet 1 tab PO BEDTIME RF: 0 Discharge Orders: Discharge Order (Routine); Ordered 02/22/21 Ordered By: Jamar Sidhu Diet: advance to usual diet Activity on Discharge: As tolerated Stand Alone Forms: Patient Portal Discharge page Other Ambulatory Orders: MR head/brain wo con (Routine) Timeframe: 1 Day Facility: [facility] - Location: MRI Ordered By: Jamar Sidhu Care Plan Goals: prevent strokes Health Concerns: cva Plan of Treatment: continue xarelto, follow up with neuro, obtain mri Assessment: see above
--- NOTE | 2021-02-22 13:02 | MHC.CM.PN ---
Patient has been medically cleared for dc to home today, no services. Last IMM addressed yesterday.
--- NOTE | 2021-02-22 13:30 | MHC.SP.ADU ---
Referring provider: Dr. Llanos Reason for Referral: ? CVA Type of Treatment: 28413 Evaluation Speech Sound Production WITH Language Date of Plan of Treatment: 02/22/21 Onset of Symptoms/Illness: 02/20/21 Date Treatment Started: 02/22/21 Medical Diagnosis: Pt is a 51 year old female who arrived to the ED with complaints of left sided weakness for the past few days in both the upper and lower extremities. Pt claimed that her speech was garbled with left facial weakness. Head CT was negative for hemorhhage though pt was not candidate for tPA due to time of symptom onset. No other acute intracranial pathologies were noted in head CT. An MRI of the brain was scheduled though MRI was not operational during hospital stay. Pt passed nursing swallow screen. Primary Speech Language Diagnosis: Secondary Speech Language Diagnosis: History Medical History: Diabetes Other: Confusion Diabetes Diverticulitis Fibromyalgia muscle pain Lupus Memory loss Neuropathy Medication List: please see in pt chart Recent Hospitalizations: No Respiratory Needs: Nasal Cannula Patient Orientation: Alert & Oriented x 4 Social History: Employment Status: Highest level of education obtained: Current Living Situation: Assistive Devices in use: Comment: Past Speech Language Therapy: Other Therapies Seen in Current Calendar Year: Other: Swallowing History: Dysphagia Specific: Within Functional Limits Comments: Pt reported no difficulty swallowing. Passed nursing swallow screen. Pre-eval Risk for Aspiration: None Pre-evaluation Dietary Consistencies: Regular Pre-eval Liquid Intake: Thin Pre-eval Medication Intake: Whole with Liquid Reported Speech, Language, Cognition difficulties: Memory Comments: Quality of Life: Patient Stated Goal of Speech-Language Therapy: Assessment Speech Production: Within Functional Limits Clinical Impression: Intact Observations: Pt's speech production 100% intelligible to an unfamiliar yet trained listener. Informal Voice Assessment: Voice Loudness: Normal Voice Nasal Resonance: Normal Voice Oral Resonance: Normal Voice Phonatory-based Quality: Normal Voice Pitch: Normal Voice Other Observations: Clinical Impression: Intact Clinicial Observations: Pt's voice was subjectively judged to be WFL for pt's age and gender. Tests of Speech & Lang Adults: Clinical Impression: Intact Observations: An informal language screener was administered. Pt completed confrontation and responsive naming tasks with 100% acc. She was able to answer complex yes/no questions and repeat sentences back without difficulty as well. Tests of Cognition: Clinical Impression: Impaired Observations: Pt was administered the [place] Cognitive Assessment (MoCA) to assess her cognitive functioning skills. This tool is used as a screener for those with cognitive impairments. It assess the following domains of cognitive functioning: visuospatial skills, executive functions, language, memory, attention, orientation, and naming. The total possible score is out of 30. A score of >26 is considered normal. Pt achieved a score of 21/30, indicating a mild cognitive impairment. It is unclear whether or not the results of the assessment are a true representation of the patients functioning, as she was noted to be in a significant amount of pain (10/10) and the effort she put into the assessment was judged to be minimal. Pt achieved the following score in these areas of cognition: namin/3 vissuospatial/executive function: 5/6 attention: 4/6 (pt gave up after one serial subtraction) language: 2/2 abstraction: 2/2 memory: 0/5 orientation: 5/5 Pt stated that her memory has always been poor and she was not surprised that she was unable to recall the 5 presented words. She benefited from multiple choices. Augmentative and Alternative Communication: Observations: Impressions and Recommendations Summary: Impact on Daily Function/Activity Limitations: Daily Activities: Mild Interpersonal Interactions: Mild Education: None Employment: Mild Community: Mild Prognosis for Improvement: Good Comment: Recommendation for Speech Therapy: Further Testing Needed Outpatient Speech Therapy Pipe Welder Goals: Pt may benefit from more extensive cognitive/linguistic evaluation in the outpatient setting. It is unclear if the results from the MoCA and informal language screener are true representations of the pt's capabilities due to reported pain (10/10) and pt giving up for certain subtests (i.e. serial subtraction). Recommended Referrals to be Discussed with Primary Care Provider: Patient Education: Completed: Yes Patient/Caregiver Education: Described Results of Evaluation Patient expressed understanding of evaluation Comments/Barriers to Learning: Mate Fishing Vessel Clinican/Clinical Fellow: Yes: Paris Landa M.A., CF-RADIOLOGY RESIDENT Supervisory Statement: Speech Language Pathologist:
--- NOTE | 2021-02-22 14:10 | MHC.CM.PN ---
Patient will dc to home today at 4PM, via [facility].
[2021-02-22] MEDS: Gabapentin 600 MG TABLET PO (15:47)
--- NOTE | 2021-02-25 10:50 | MHC.STROKE ---
LATE ENTRY FOR 02/20/21-02/22/21 CARE. CONFIRMED NIHSS = [address] SMITH'S NOTE, PASSED SWALLOW PRIOR TO PO, STROKE EDUCATION BOOKLET GIVEN AT DISCHARGE BY RN. PATIENT HAS PRIVATE DUTY HELP, RECOMMENDATION FOR HOME REHAB SERVICES DONE.
== END 2021-02-22 16:54 | disposition home or self-care (01) | DRG 69 ==
LOC: HO.ED 02-21 02:01 → HO.EDOVER 02-21 04:25 → HO.IMC 02-22 05:52
PROVIDERS: Admitting Provider Hospitalist; Emergency Provider Emergency Medicine Emergency Medical Services; PCP Family Medicine; Visit Provider Internal Medicine
DX: G45.9 Transient cerebral ischemic attack, unspecified (principal); G81.94 Hemiplegia, unspecified affecting left nondominant side; D68.62 Lupus anticoagulant syndrome; J96.11 Chronic respiratory failure with hypoxia; F32.9 Major depressive disorder, single episode, unspecified; M79.7 Fibromyalgia; E11.9 Type 2 diabetes mellitus without complications; F41.9 Anxiety disorder, unspecified; Z20.822 Contact with and (suspected) exposure to COVID-19; Z99.81 Dependence on supplemental oxygen; Z86.711 Personal history of pulmonary embolism; Z88.0 Allergy status to penicillin; Z79.01 Long term (current) use of anticoagulants; Z79.899 Other long term (current) drug therapy
CPT/HCPCS: 36415; 70450; 70496; 70498; 71045; 74176; 80048; 80061; 80076; 81003; 82077; 82550; 82947; 83735; 84100; 84484; 85025; 85610; 85730; 87635; 92523; 93005; 93306; 97162; 97166; 99285; J1170; J2405; Q9967